=== PATIENT | female | born 1995 | race Caucasian/White ===

== ENCOUNTER → 2022-09-22 | Outpatient (CLI) | payer SELFPAY ==
[2022-09-22 11:19] LABS: Absolute Lymphocyte Count 1.89 X10^3/uL (0.83-4.51); Absolute Neutrophil Count 5.4 X10^3/uL (2.0-7.7); Basophil# 0.01 X10^3/uL; Basophil% 0.1 % (0-1); Eosinophil# 0.04 X10^3/uL; Eosinophils% 0.5 % (0-5); Hematocrit 35.7 % (37-47); Hemoglobin 11.9 g/dL (12.0-15.0); Lymphocyte # 1.89 X10^3/ul (0.83-4.51); Lymphocyte % 24.4 % (19-41); Mean Corp Hgb Conc 33.3 g/dL (32-36); Mean Corpuscular Hgb 30.1 pg (27.0-32.0); Mean Corpuscular Volume 90.4 fL (81-99); Mean Platelet Vol. 10.3 fl (6.2-12.0); Monocyte# 0.38 X10^3/uL; Monocyte% 4.9 % (0-10); NRBC Flagged by Analyzer 0 % (0-5); Neutrophil # 5.38 X10^3/uL (2.7-7.7); Neutrophil % 69.6 % (47-70); Platelet Count 176 K/mm3 (150-450); RBC Distribution Width CV 13.2 % (11.6-14.6); RBC Distribution Width SD 43.6 fl (35.1-43.9); Red Blood Count 3.95 M/mm3 (4.2-5.4); White Blood Count 7.7 K/mm3 (4.4-11.0)
[2022-09-22 12:42] LABS: HIV - WCH Non-Reactive (Nonreactive); Hepatitis B Surface Antigen Non-Reactive (Nonreactive); Hepatitis C Antibody Non-Reactive (Nonreactive); Rubella IgG Reactive (Nonreactive); Syphilis Antibodies Non-reactive
[2022-09-26 04:07] LABS: Chlamydia By Nucleic Acid AMP Negative (Negative); Gonococcus By Nucleic Acid AMP Negative (Negative)
[2022-09-30 11:25] LABS: HPV Reflexed? NOT INDICATED
== END | disposition home or self-care (01) ==
PROVIDERS: PCP Family Medicine; Referring Provider Advanced Practice Midwife; Visit Provider Advanced Practice Midwife
DX: O09.90 Supervision of high risk pregnancy, unspecified, unspecified trimester (principal); Z3A.00 Weeks of gestation of pregnancy not specified
CPT/HCPCS: 36415; 85025; 86703; 86762; 86780; 86803; 86850; 86900; 86901; 87086; 87088; 87340; 87491; 87591; 88175; G0145

== ENCOUNTER → 2022-11-30 | Outpatient (CLI) | payer SELFPAY ==
--- NOTE | 2022-11-30 12:18 | US_ITS ---
STUDY: SECOND AND THIRD TRIMESTER OBSTETRICAL ULTRASOUND REASON FOR EXAM: Female, 27 years old anatomy scan LMP: July 14, 2022. TECHNIQUE: Transabdominal and Transvaginal TECHNICAL QUALITY: Adequate. PRIOR ULTRASOUND: None. FINDINGS: There is a single intrauterine fetus. The fetus is in a variable presentation. There is demonstrated cardiac activity with a heart rate of 141 bpm. There is a normal amniotic fluid volume. The largest amniotic fluid pocket measures 4.2 cm. The amniotic fluid index (ZABRINA) is within normal limits. The placenta is anterior in location and is not low lying. There are Grade 0 placental changes. The cervix measures 4.2 cm in length. The bilateral adnexal regions are normal. BIOMETRY: BPD: 4.39 cm: 19 weeks, 2 days HC: 17.01 cm: 19 weeks, 4 days AC: 14.23 cm: 19 weeks, 4 days FL: 3.06 cm: 19 weeks, 3 days CI: 72% FL/BPD: 70% FL/HC: FL/AC: 22% HC/AC: 1.2 age by current US: 19 weeks, 1 days. WERNER by current US: October 22, 2023. Estimated weight: 297 grams, +/- 45 grams, 27 %. Age by LMP: 19 weeks, 6 days. WERNER by LMP: April 20, 2023. ANATOMY: Gender: Male Cranium: Normal lateral ventricles. Normal choroid plexus. Normal cerebellum. Normal cisterna magna. Normal face, nose and lips. Chest: Normal 4-chamber heart. Abdomen/Pelvis: Normal diaphragm. Normal stomach. Normal abdominal wall. Normal cord insertion. Normal 3 vessel cord. Normal kidneys. Normal bladder. Spine: Normal cervical spine. Normal thoracic spine. Normal lumbar spine. Normal sacrum. Extremities: Normal bilateral upper extremities. Normal bilateral lower extremities. US/OB Anatomy Scan IMPRESSION: Single live intrauterine gestation with a mean gestational age of 19 weeks and 1 day. Electronically Signed: John Suarez MD at 9:29 EDT ,
== END | disposition home or self-care (01) ==
LOC: OPUS 12:16
PROVIDERS: PCP Family Medicine; Referring Provider Advanced Practice Midwife; Visit Provider Advanced Practice Midwife
DX: O34.219 Maternal care for unspecified type scar from previous cesarean delivery (principal); Z3A.00 Weeks of gestation of pregnancy not specified
CPT/HCPCS: 76805; 76817

== ENCOUNTER → 2023-01-22 | Outpatient (CLI) | payer SELFPAY ==
[2023-01-22 09:46] LABS: Absolute Lymphocyte Count 1.51 X10^3/uL (0.83-4.51); Absolute Neutrophil Count 4.9 X10^3/uL (2.0-7.7); Basophil# 0.01 X10^3/uL; Basophil% 0.1 % (0-1); Eosinophil# 0.05 X10^3/uL; Eosinophils% 0.7 % (0-5); Hematocrit 30.2 % (37-47); Hemoglobin 10.5 g/dL (12.0-15.0); Lymphocyte # 1.51 X10^3/ul (0.83-4.51); Lymphocyte % 22.1 % (19-41); Mean Corp Hgb Conc 34.8 g/dL (32-36); Mean Corpuscular Hgb 32.1 pg (27.0-32.0); Mean Corpuscular Volume 92.4 fL (81-99); Mean Platelet Vol. 10.1 fl (6.2-12.0); Monocyte# 0.31 X10^3/uL; Monocyte% 4.5 % (0-10); NRBC Flagged by Analyzer 0 % (0-5); Neutrophil # 4.91 X10^3/uL (2.7-7.7); Neutrophil % 71.9 % (47-70); Platelet Count 136 K/mm3 (150-450); RBC Distribution Width CV 13.2 % (11.6-14.6); RBC Distribution Width SD 45.1 fl (35.1-43.9); Red Blood Count 3.27 M/mm3 (4.2-5.4); White Blood Count 6.8 K/mm3 (4.4-11.0)
[2023-01-22 10:05] LABS: Glucose Challenge Gest 1H 50g 108 mg/dL (70-140)
[2023-01-22 10:38] LABS: HIV - WCH Non-Reactive (Nonreactive); Syphilis Antibodies Non-reactive
== END | disposition home or self-care (01) ==
PROVIDERS: PCP Family Medicine; Referring Provider Obstetrics & Gynecology; Visit Provider Obstetrics & Gynecology
DX: O34.219 Maternal care for unspecified type scar from previous cesarean delivery (principal); Z3A.00 Weeks of gestation of pregnancy not specified
CPT/HCPCS: 36415; 82950; 85025; 86703; 86780

== ENCOUNTER → 2023-02-22 | Outpatient (CLI) | payer SELFPAY ==
[2023-02-22 09:32] LABS: Absolute Lymphocyte Count 1.68 X10^3/uL (0.83-4.51); Basophil# 0.01 X10^3/uL; Basophil% 0.1 % (0-1); Eosinophil# 0.05 X10^3/uL; Eosinophils% 0.7 % (0-5); Hematocrit 32.5 % (37-47); Hemoglobin 10.7 g/dL (12.0-15.0); Lymphocyte # 1.68 X10^3/ul (0.83-4.51); Lymphocyte % 23.2 % (19-41); Mean Corp Hgb Conc 32.9 g/dL (32-36); Mean Corpuscular Hgb 30.8 pg (27.0-32.0); Mean Corpuscular Volume 93.7 fL (81-99); Mean Platelet Vol. 10.2 fl (6.2-12.0); Monocyte# 0.43 X10^3/uL; Monocyte% 5.9 % (0-10); NRBC Flagged by Analyzer 0 % (0-5); Platelet Count 126 K/mm3 (150-450); RBC Distribution Width CV 13.6 % (11.6-14.6); RBC Distribution Width SD 46.2 fl (35.1-43.9); Red Blood Count 3.47 M/mm3 (4.2-5.4); White Blood Count 7.3 K/mm3 (4.4-11.0)
== END | disposition home or self-care (01) ==
PROVIDERS: Nurse Practitioner Women's Health; PCP Family Medicine; Referring Provider Obstetrics & Gynecology; Visit Provider Obstetrics & Gynecology
DX: O99.019 Anemia complicating pregnancy, unspecified trimester (principal); D69.6 Thrombocytopenia, unspecified; O99.119 Other diseases of the blood and blood-forming organs and certain disorders involving the immune mechanism complicating pregnancy, unspecified trimester; Z3A.00 Weeks of gestation of pregnancy not specified
CPT/HCPCS: 36415; 85025

== ENCOUNTER → 2023-03-23 | Outpatient (CLI) | payer SELFPAY ==
[2023-03-23 10:43] LABS: Absolute Lymphocyte Count 1.62 X10^3/uL (0.83-4.51); Absolute Neutrophil Count 4.8 X10^3/uL (2.0-7.7); Basophil# 0.02 X10^3/uL; Basophil% 0.3 % (0-1); Eosinophil# 0.04 X10^3/uL; Eosinophils% 0.6 % (0-5); Hematocrit 32.4 % (37-47); Hemoglobin 10.9 g/dL (12.0-15.0); Lymphocyte # 1.62 X10^3/ul (0.83-4.51); Lymphocyte % 23.1 % (19-41); Mean Corp Hgb Conc 33.6 g/dL (32-36); Mean Corpuscular Hgb 31.3 pg (27.0-32.0); Mean Corpuscular Volume 93.1 fL (81-99); Mean Platelet Vol. 10.6 fl (6.2-12.0); Monocyte# 0.46 X10^3/uL; Monocyte% 6.6 % (0-10); NRBC Flagged by Analyzer 0 % (0-5); Neutrophil # 4.82 X10^3/uL (2.7-7.7); Neutrophil % 68.7 % (47-70); Platelet Count 137 K/mm3 (150-450); RBC Distribution Width CV 13.4 % (11.6-14.6); RBC Distribution Width SD 45.4 fl (35.1-43.9); Red Blood Count 3.48 M/mm3 (4.2-5.4)
[2023-03-23 18:42] LABS: Group B Strep DNA By PCR Negative (Negative)
== END | disposition home or self-care (01) ==
PROVIDERS: Nurse Practitioner Women's Health; PCP Family Medicine; Referring Provider Obstetrics & Gynecology; Visit Provider Obstetrics & Gynecology
DX: O99.012 Anemia complicating pregnancy, second trimester (principal); Z3A.00 Weeks of gestation of pregnancy not specified
CPT/HCPCS: 36415; 85025; 87081; 87653

== ENCOUNTER → 2023-04-05 | Outpatient (CLI) | payer SELFPAY ==
--- NOTE | 2023-04-05 13:27 | US_ITS ---
STUDY: SECOND AND THIRD TRIMESTER OBSTETRICAL ULTRASOUND - LIMITED REASON FOR EXAM: Female, 27 years old small for gestational age -- LMP: 07/14/2022 PRIOR ULTRASOUND: Prior study dated: 11/30/2022 TECHNIQUE: Transabdominal TECHNICAL QUALITY: Adequate. FINDINGS: There is a single intrauterine fetus. The fetus is in a cephalic presentation. There is demonstrated cardiac activity with a heart rate of 135 bpm. There is a normal amniotic fluid volume. The largest amniotic fluid pocket measures 7.4 cm. The amniotic fluid index (ZABRINA) is 17.7 cm. The placenta is anterior in location and is not low lying. There are Grade 1 placental changes. The cervix is not visualized. BIOMETRY: BPD: 8.5 cm: 34 weeks, 2 days HC: 32.7 cm: 37 weeks, 1 days AC: 33.3 cm: 37 weeks, 1 days FL: 7.1 cm: 36 weeks, 3 days Age by LMP: 37 weeks, 6 days. WERNER by LMP: 04/20/2023. age by prior US: 19 weeks, 1 days. WERNER by prior US: 04/23/2023. age by current US: 36 weeks, 2 days. WERNER by current US: 05/01/2023. Estimated weight: 2974 grams, +/- 446 grams, 29 percentile. US/OB Limited With Biometrics IMPRESSION: Single live intrauterine fetus in cephalic presentation with an estimated gestational age 36 weeks and 2 days. WERNER is 05/01/2023. Electronically Signed: Denis Carlton MD at 10:22 EST ,
== END | disposition home or self-care (01) ==
PROVIDERS: PCP Family Medicine; Referring Provider Obstetrics & Gynecology; Visit Provider Obstetrics & Gynecology
DX: D69.6 Thrombocytopenia, unspecified (principal); O99.119 Other diseases of the blood and blood-forming organs and certain disorders involving the immune mechanism complicating pregnancy, unspecified trimester; O34.219 Maternal care for unspecified type scar from previous cesarean delivery; Z3A.00 Weeks of gestation of pregnancy not specified
CPT/HCPCS: 76816

== ENCOUNTER 2023-04-20 09:52 | Inpatient (IN) | payer SELFPAY ==
[2023-04-20] VITALS (18 sets, daily range): BP systolic 92–119; BP diastolic 45–75; PULSE 55–81; RESP 16; TEMP 36.1–36.6; O2SAT 94–98; BMI 29.6
--- NOTE | 2023-04-20 08:13 | HP.PCM.OB_ITS ---
HPI - General HPI Narrative ERMA HUTCHINS, is a 27 F who presents for RLTCS previous csection x 2 Maternal Data Information WERNER Calculator Estimated Delivery Date Method Current WG Current Estimate 04/20/23 Ultrasound #1 40w 0d Other Estimates 04/26/23 LMP (Certain) 39w 1d PFSH PFSH Home Medications dietary supplement cap PO 11/30/22 [History Last Taken Unknown] vitamin#30 30 mg iron-10 mg iron-folic acid 1 mg-omg3 capsule cap PO 11/30/22 [History Last Taken Unknown] Allergy/AdvReac Type Severity Reaction Status Date / Time No Known Allergies Allergy Verified 04/19/23 11:23 Family History Grandmother Cancer, Onset Age: 79 Brain Aunt Cancer, Onset Age: 4 Brain tumor Social History adopted: No household members: family number of children: 2 current occupational status: employed current occupation: [employer] pets and animals: No history of recent travel: No sexually active: Yes Smoking Status: Never smoker alcohol intake: never substance use type: does not use caffeine: Yes Type: coffee seatbelt use: always do you feel safe at home: Yes additional social history: Clifford-garcia History 3 Elective abortions Hx Para 2 Spontaneous abortions Hx # Term Pregnancies 2 Ectopic pregnancies Hx # Pregnancies Multiple births # of living children 2 Past Pregnancies Del. Date Name GA/Weeks Outcome Route Bth Weight Infant Gen Labor Lgth Anesthesia Del Locatn Provider FOB 01/31/17 Kaci 40 live - full term 6.11 Female Pomerene 01/28/19 Kat 41 live - full term 6.15 Female Beason Delivery Date: 01/28/19 Last Updated by: Yaima Oden MD transverse presentation Visit Details Expected Delivery Route/Plan TOLAC by 41 weeks, repeat c section if no spontaneous labor patient counseled regarding risks/benefits of trial of labor versus repeat . ACOG/uptodate education given to patient. 53 % likelihood of success per calculator TOLAC consent form signed: yes Labor Preferences- CB/BF classes: no labor support person: Clifford labor intervention preferences: [] pain management options preferred: epidural cut cord/dad catch: no : yes PP control planned: condoms discussed possible routes of delivery and associated risks: [] special requests: [] Desires co care with community relations assistant Wang Ho Plans Covid status:declined Flu vaccine: declined Tdap vaccine: declined Rhogam: NA LARC form signed: yes movement and labor precautions reviewed. Problem list reviewed and updated with the most current plan of care details and appropriate orders placed. Relevant counseling for the gestational age provided. Continue routine care and follow up unless otherwise noted in visit notes/problem list details OB Flowsheet Initial Weight: Not Recorded Date -?-?-?-?-?-?-?-?-?-?-?-?- EGA Weight BP Urine Prot -?-?-?-?-?-?-?-?-?-?-?-?- Glucose FHR FuHt Pres Dilation -?-?-?-?-?-?-?-?-?-?-?-?- Effaced St Visit Note 09/22/22 -?-?-?-?-?-?-?-?-?-?-?-?- 10w 0d 137 lb 120/74 -?-?-?-?-?-?-?-?-?-?-?-?- 180 -?-?-?-?-?-?-?-?-?-?-?-?- KW- CRL=LMP CL c ysts noted. small SC Hemorrhage noted KW- CRL=LMP CL cysts noted. small SC Hemorrhage noted. plans to do 20 week US and 28 week appointment. plans at [facility] KW- CRL not =LMP. WERNER change d. JV scanned. CL cysts noted. small SC Hemorrhage noted. plans co care with Wang Ho- to do 20 week US and 28 week appointment. plans at [facility] 11/30/22 -?-?-?-?-?-?-?-?-?-?-?-?- 19w 6d 143 lb 103/66 Negative -?-?-?-?-?-?-?-?-?-?-?-?- Negative 140 -?-?-?-?-?-?-?-?-?-?-?-?- SM- no vb ni[place]. discussed will obtain records from delivery [place] 01/22/23 -?-?-?-?-?-?-?-?-?-?-?-?- 27w 3d 149 lb 6 oz 98/60 Nega tive -?-?-?-?-?-?-?-?-?-?--?-?- Negative 154 26 -?-?-?-?-?-?-?-?-?-?-?-?- MH-No VB, LOF. G ood FM. Anemia:reviewed PNV and extra FE daily. Noted low platelets, rpt CBC 4 wk. Declines flu and tdap vaccines. See [employer] player 2 wk then SM/JV 4 wk. Glucose normal. 02/22/23 -?-?-?-?-?-?-?-?-?-?-?-?- 31w 6d 153 lb 108/73 Negative -?-?-?-?-?-?-?-?-?-?-?-?- Negative 140 31 -?-?-?-?-?-?-?-?-?-?-?-?- SM- no vb lof go od fms no regular ctx, she has been seeing wang ho, measurements have been WN, 03/23/23 -?-?-?-?-?-?-?-?-?-?-?-?- 36w 0d 160 lb 114/75 Negative -?-?-?-?-?-?-?-?-?-?-?-?- Negative 150 35 Cephalic 1 -?-?-?-?-?-?-?-?-?-?-?-?- 30 -3 JV- no lof , vaginal bleeding, or dec fm. gbs collected. wants rpt section if no labor by 40 weeks. does not want her community relations assistant to be her family coach any longer .states that she does not feel comfortable with her. plts up to 137 04/05/23 -?-?-?-?-?-?-?-?-?-?-?-?- 37w 6d 159 lb 103/66 -?-?-?-?-?-?-?-?-?-?-?-?- 130 37 Cephalic 1 -?-?-?-?-?-?-?-?-?-?-?-?- SM_ no vb lof go od fm n oregular ctx, wans to wait closer til 41 for RLTCS/TOLAC. 04/19/23 -?-?-?-?-?-?-?-?-?-?-?-?- 39w 6d 161 lb 9.6 oz 104/68 Ne gative -?-?-?-?-?-?-?-?-?-?-?-?- Negative 130 34 Cephalic 1 -?-?-?-?-?-?-?-?-?-?-?-?- 60 -2 SM- no vb lof good fm dropped FH suraj 7 cm down from 17 cm. NST FHR Rate Baby A Baseline: 130 ROS Constitutional Constitutional: Reports systems reviewed and no addt'l complaints, except as documented Eyes Eyes: Denies change in vision ENT HEENT: Reports systems reviewed and no addt'l complaints, except as documented; Denies headache(s) Cardiovascular Cardiovascular: Reports systems reviewed and no addt'l complaints, except as documented; Denies chest pain or dyspnea Respiratory/Chest Respiratory/Chest: Reports systems reviewed and no addt'l complaints, except as documented Gastrointestinal Gastrointestinal: Reports systems reviewed and no addt'l complaints, except as documented; Denies abdominal pain Genitourinary Genitourinary: Reports systems reviewed and no addt'l complaints, except as documented, contractions Details: present (irregular) and movement Details: present; Denies dysuria or genital lesions Musculoskeletal Musculoskeletal: Reports systems reviewed and no addt'l complaints, except as documented Neurologic Neurologic: Reports systems reviewed and no addt'l complaints, except as documented Endocrine Endocrinology: Reports systems reviewed and no addt'l complaints, except as documented Physical Exam Const alert, oriented x3, no apparent distress and healthy appearing HEENT normocephalic and moist oral mucous membranes Head and Scalp: atraumatic Neck full ROM, no lymphadenopathy, supple and thyroid normal General: trachea midline Lymph Lymphatic: no lymphadenopathy noted Chest inspection of chest normal Resp normal respiratory effort Cardio regular rate GI normal to inspection, nondistended, normoactive bowel sounds, soft to palpation and non-tender Inspection: gravid external exam normal Manual OB Exam: estimated gestational size appropriate, presentation cephalic, dilated, effaced and station Extremity normal to inspection General Extremity: Negative for edema Skin no rashes or lesions noted Neuro no focal motor deficits and deep tendon reflexes 2+ bilaterally Motor Exam: strength 5/5 throughout and clonus absent Psych mental status grossly normal Labs Labs Labs: Blood Type O POSITIVE Antibody Screen NEGATIVE Hct 32.4 % (37-47) L Hgb 10.9 g/dL (12.0-15.0) L Obstetrics Ultrasound Syphilis Total Ab Non-reactive Rubella IgG Antibody Reactive (Nonreactive) Hep Bs Antigen Non-Reactive (Nonreactive) Hepatitis C Antibody Non-Reactive (Nonreactive) Chlamydia DNA (ARCELIA) Negative (Negative) N.gonorrhoeae DNA (ARCELIA) Negative (Negative) HIV 1&2 Antibody Non-Reactive (Nonreactive) Glucose 1 Hr 50 gm 108 mg/dL (70-140) Group B Strep DNA Negative (Negative) Assessment & Plan (1) History of delivery affecting : COMMENT: failed induction & transverse lie IAL on second (2) Supervision of high risk , antepartum: COMMENT: PRR WERNER 04/20/23 Kat Grewal Clifford (3) : QUALIFIERS: Weeks of gestation: 39 weeks Qualified Code(s): Z3A.39 - 39 weeks gestation of COMMENT: GBS Negative, Declines NIPT/carrier/afp screen. normal anatomy (4) Thrombocytopenia affecting : COMMENT: 01/22:136. 11/3 126. Recheck 4 wk (5) Anemia in preg-unspec: QUALIFIERS: Trimester: second trimester Qualified Code(s): O99.012 - Anemia complicating , second trimester COMMENT: start FE; stable PLAN: Plan proceed with RLTCS
[2023-04-20] MEDS: Lactated Ringers 1,000 ML 999 ML IV (10:25)
[2023-04-20] MEDS: Acetaminophen 500 MG Tablet 1000 MG PO ×3 (10:31→22:15)
--- OUTSIDE RECORDS SUMMARY | 2023-04-20 10:31 | XMS RPT_ITS | CCD ---
Author Name Unknown Address [address] [place] [address] [facility] Care Team Providers Care Long Term Care Social Worker Name Role Phone Brandee Radford Unavailable Unavailable Lopez, Clarence Unavailable Unavailable PrabhakarBrandee villa D Unavailable Unavailable Lai Babcock Unavailable Unavailable Atul, Shemar Unavailable Unavailable Yevgeniy, Mehnaz Unavailable Unavailable Yevgeniy, Mehnaz Unavailable Unavailable Atul, Shemar Unavailable Unavailable Yevgeniy, Mehnaz Unavailable Unavailable Atul, Shemar Unavailable Unavailable Yevgeniy, Mehnaz Unavailable Unavailable Atul, Shemar Unavailable Unavailable Yevgeniy, Mehnaz Unavailable Unavailable Yevgeniy, Mehnaz Unavailable Unavailable Atul, Shemar Unavailable Unavailable Yevgeniy, Mehnaz Unavailable Unavailable Atul, Shemar Unavailable Unavailable Yevgeniy, Mehnaz Unavailable Unavailable Yevgeniy, Mehnaz Unavailable Unavailable Atul, Shemar Unavailable Unavailable Yevgeniy, Mehnaz Unavailable Unavailable Atul, Shemar Unavailable Unavailable Yevgeniy, Mehnaz Unavailable Unavailable Atul, Shemar Unavailable Unavailable Yevgeniy, Mehnaz Unavailable Unavailable Yevgeniy, Mehnaz Unavailable Unavailable Yevgeniy, Mehnaz Unavailable Unavailable Atul, Shemar Unavailable Unavailable Yevgeniy, Mehnaz Unavailable Unavailable Yevgeniy, Mehnaz Unavailable Unavailable Atul, Shemar Unavailable Unavailable Yevgeniy, Mehnaz Unavailable Unavailable Atul, Shemar Unavailable Unavailable Yevgeniy, Mehnaz Unavailable Unavailable Tavo Zhou Unavailable Unavailable Unavailable [place], Mrs. Tavo Nicole Referring Unavailabl e Abelardo, Mrs. Tavo Nicole Attending Unavailabl e Abelardo, Alex Nicole Primary Care Unavailabl e Allergies Allergy Classification Reported Allergen(s) Allergy Type Date of Onset Reaction(s) Facility (1 source) No Known Medication Allergies; Translations: [No Known Medication Allergies] Propensity to adverse reactions to drug (disorder) [facility] Repository Medications Completed/Discontinued Medications Medication Drug Class(es) Dates Sig (Normalized) Sig (Original) hydrocortisone acetate 25 mg rectal suppository (2 sources) Corticosteroid Start: 05-04-2022 Hydrocortisone (Perianal) 2.5 % External Cream APPLY ONCE DAILY NEEDED. Quantity: 1 Refills: 2 Ordered: 04-May-2022 Abelardo DUKESTavo Start : 04-May-2022 Active Problems Problem Classification Problem Date Documented Da te Episodic/Chronic Hemorrhoids (2 sources) Internal hemorrhoids; Translations: [Internal hemorrhoids without mention of complication] Episodic Other gastrointestinal disorders (1 source) Constipation; Translations: [Constipation, unspecified] Episodic Results Test Name Value Interpretation Reference Range Facil ity Vital Signs Date Time Vital Sign Value Performing Clinician Faci lity 05-04-2022 09:35-0500 Body height 160.02 cm Tavo Callejasd Work Phone: [facility] Work Phone: 05-04-2022 09:35-0500 Body mass index (BMI) [Ratio] 25.51 kg/m2 Tavo Callejasd Work Phone: [facility] Work Phone: 05-04-2022 09:35-0500 Body surface area Derived from formula 1.68 m2 Tavo Callejasd Work Phone: [facility] Work Phone: 05-04-2022 09:35-0500 Body weight 65.32 kg Tavo Callejasd Work Phone: [facility] Work Phone: 05-04-2022 09:35-0500 Diastolic blood pressure 64 mm[Hg] Tavo Callejasd Work Phone: [facility] Work Phone: 05-04-2022 09:35-0500 Heart rate 62 /min Tavo Callejasd Work Phone: [facility] Work Phone: 05-04-2022 09:35-0500 Systolic blood pressure 112 mm[Hg] Tavo Job Zhou Work Phone: [facility] Work Phone: Encounters Encounter Date Encounter Type Care Provider Facility Start: 05-04-2022 Office outpatient ne w 30 minutes Tavo Zhou Work Phone: [facility] Work Phone: Start: 05-04-[address] Mrs[address] Tavo Nicole Abelardo Fa cility:[id number] Start: 03-27-2017 End: 03-28-2017 Ambulatory Brandee Radford Facility:[facility] Start: 03-19-2017 End: 03-20-2017 Ambulatory Mehnaz Yevgeniy Facility:[facility] Start: 02-16-2017 End: 02-17-2017 Ambulatory Mehnaz Yevgeniy Facility:[facility] Start: 01-30-2017 End: 02-02-2017 Evaluation and management of inpatient Shemar Atul Facility:[facility] Start: 01-29-2017 End: 01-30-2017 Ambulatory [facility] Facility:[facility] Start: 01-22-2017 End: 01-23-2017 Ambulatory Mehnaz Yevgeniy Facility:[facility] Start: 01-15-2017 End: 01-16-2017 Ambulatory Mehnaz Yevgeniy Facility:[facility] Start: 01-05-2017 End: 01-06-2017 Ambulatory Mehnaz Yevgeniy Facility:[facility] Start: 12-26-2016 End: 12-27-2016 Ambulatory [facility] Facility:[facility] Start: 12-26-2016 End: 12-27-2016 Ambulatory Mehnaz Yevgeniy Facility:[facility] Start: 12-05-2016 End: 12-06-2016 Ambulatory Mehnaz Yevgeniy Facility:[facility] Start: 11-07-2016 End: 11-08-2016 Ambulatory Lai Babcock Facility:[facility] Start: 11-07-2016 End: 11-08-2016 Ambulatory Mehnaz Yevgeniy Facility:[facility] Procedures Date Procedure Procedure Detail Performing Clinician section Tavo nagel Work Phone: Plan of Treatment Date Care Activity Detail Author Start: 06-06-2022 EPV, Provider: Tavo Zhou, Status: Pen, Time: 9:15 AM EPV, Provider: AbelardoTavo, Status: Pen, Time: 9:15 AM [facility] Work Phone: Payers Date Payer Category Payer Unknown 1995 Unknown [id number] Self-pay Social History Date Type Detail Facility No illicit drug use No illicit drug use [facility] Work Phone: History of Present illness Narrative Note Date & Type Note Facility History of Present illness Narrative Rafia is a 26 yo female, here today to establish care, she has complaint of hemorrhoids.She reports she has had problem with hemorrhoids for years.She first had issues with hemorrhoids as a teenShe states that recently she has one that has been bothering her for 6 months.She reports rectal bleeding once.does have rectal pain, burning, and itching dailypain worse with lifting.taking daily fiber supplementLMC: 04/26/2021 [facility] Work Phone: Summary Purpose Family History No Family History Records FoundUnknown Family Member Name Dates Details No pertinent family history: Mother, Father(V49.89, Z78.9) Status:Active Advance Directives No Advanced Directives Records FoundNo Advanced Directives Records FoundNo Advanced Directives Records FoundNo Advanced Directives Records FoundNo Advanced Directives Records Found 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 Additional Source Comments INFORMATION SOURCE (unrecogn ized section and content) DATE CREATED AUTHOR AUTHOR'S ORGANIZ ATION 02/05/2019 [facility] ([place]) DATE CREATED AUTHOR AUTHOR'S ORGANIZ ATION 05/04/2022 [facility] DATE CREATED AUTHOR AUTHOR'S ORGANIZ ATION 05/04/2022 [employer] FOR RECORDS PERTAINING TO PATIENTS WHO ARE OR HAVE BEEN ENROLLED IN A CHEMICAL DEPENDENCY/SUBSTANCEABUSE PROGRAM, SOME INFORMATION MAY BE OMITTED. This clinical summary was aggregated from multiple sources. Caution should be exercised in using it in the provision of clinical care. This summary normalizes information from multiple sources, and as a consequence, information in this document may materially change the coding, format and clinical context of patient data. In addition, data may be omitted in some cases. CLINICAL DECISIONS SHOULD BE BASED ON THE PRIMARY CLINICAL RECORDS. [facility] [employer] [facility]. provides no warranty or guarantee of the accuracy or completeness of information in this document.
[2023-04-20 10:49] LABS: Absolute Lymphocyte Count 1.57 X10^3/uL (0.83-4.51); Absolute Neutrophil Count 5.2 X10^3/uL (2.0-7.7); Basophil# 0.01 X10^3/uL; Basophil% 0.1 % (0-1); Eosinophil# 0.03 X10^3/uL; Eosinophils% 0.4 % (0-5); Hematocrit 31.7 % (37-47); Hemoglobin 10.9 g/dL (12.0-15.0); Lymphocyte # 1.57 X10^3/ul (0.83-4.51); Lymphocyte % 21.7 % (19-41); Mean Corp Hgb Conc 34.4 g/dL (32-36); Mean Corpuscular Hgb 31.8 pg (27.0-32.0); Mean Corpuscular Volume 92.4 fL (81-99); Mean Platelet Vol. 11.2 fl (6.2-12.0); Monocyte% 5.5 % (0-10); NRBC Flagged by Analyzer 0 % (0-5); Neutrophil # 5.17 X10^3/uL (2.7-7.7); Neutrophil % 71.6 % (47-70); Platelet Count 140 K/mm3 (150-450); RBC Distribution Width CV 13.2 % (11.6-14.6); RBC Distribution Width SD 43.9 fl (35.1-43.9); Red Blood Count 3.43 M/mm3 (4.2-5.4); White Blood Count 7.2 K/mm3 (4.4-11.0)
[2023-04-20] MEDS: Lactated Ringers 1,000 ML 150 ML IV (11:29)
[2023-04-20 11:54] LABS: Syphilis Antibodies Non-reactive
[2023-04-20] MEDS: Sodium Citrate/Citric Acid 30 ML UDC PO (12:22)
[2023-04-20] MEDS: Cefazolin 2 GM in 0.9% Normal Saline (100mL Bag) 100 ML IV (12:34)
--- NOTE | 2023-04-20 13:38 | EX.PCM.OBRPT ---
Assessment & Plan (1) Uterine size-date discrepancy, third trimester: COMMENT: FH drop 4 cm, ZABRINA dec 17 to 7 cm, will proceed with deliveyr tomorrow, zabrina and nst today (2) Anemia in preg-unspec: QUALIFIERS: Trimester: second trimester Qualified Code(s): O99.012 - Anemia complicating , second trimester COMMENT: start FE; stable (3) Thrombocytopenia affecting : COMMENT: 01/22:136. 02/23 126. Recheck 4 wk (4) Desires (vaginal after ) trial: COMMENT: Op note reviewed from HAROLDO jorgensen. 4 cm on first csection, 7 cm and transverse lie with second csection, RCS 04/25/23 (5) : QUALIFIERS: Weeks of gestation: 39 weeks Qualified Code(s): Z3A.39 - 39 weeks gestation of COMMENT: GBS Negative, Declines NIPT/carrier/afp screen. normal anatomy (6) Supervision of high risk , antepartum: COMMENT: PRR WERNER 04/20/23 Kat Grewal Clifford (7) History of delivery affecting : COMMENT: failed induction & transverse lie IAL on second (8) delivery delivered: COMMENT: RLTCS leonard [facility]brook 40- Maternal Data Information WERNER Calculator Estimated Delivery Date Method Current WG Current Estimate 04/20/23 Ultrasound #1 40w 0d Other Estimates 04/26/23 LMP (Certain) 39w 1d Final WERNER Source: LMP Details Operative Information Date of Procedure: 04/20/23 Pre-Operative Diagnosis: Previous Post-Operative Diagnosis: same Indications for : Repeat Elective Indications Narrative: Surgeon: Yaima Oden MD Classification: Scheduled Procedure Type: low transverse ammonium hydroxide operator #1: Alex Mahajan Type of Anesthesia: Spinal Special Medications: none Antibiotic Given: Ancef 2 grams IV x1 Drain: Cannon to straight drain Estimated Blood Loss: 400 Fluids Replaced: crystalloid Procedure Start Time: 12:57 Procedure Stop Time: 13:32 Findings Description of Procedure: Spinal anesthesia was placed without difficulty. Cannon catheter was placed. The patient was placed in the dorsal supine position with leftward tilt. Patient was prepped and draped in the normal sterile fashion. Pfannenstiel skin incision was made with the scalpel and carried through to the underlying layer of fascia with the scalpel. Fascia was nicked in the midline and the incision extended laterally. The rectus bellies were dissected off superiorly and inferiorly with out complication both sharply and bluntly. The peritoneum was entered digitally. The incision was stretched and a low transverse uterine incision was made with the scalpel. The infant's head was delivered atraumatically followed by the anterior and posterior shoulders without complication the rest of the delivered. The cord was clamped and cut and the infant was handed off to awaiting nurse. The placenta was delivered spontaneously immediately following and was noted to be intact and have a three-vessel cord. The uterus was exteriorized cleared of all clots and debris, and the incision was closed in a single layer closure using #1 Monocryl. pelvic congestion noted. The ovaries and fallopian tubes were noted to be within normal limits. The uterus was returned to the maternal abdomen and gutters were cleared of all clots and debris. The peritoneum was closed with 3-0 Monocryl in a running fashion. Fascia was closed with 0 PDS in a running fashion. Subcutaneous tissue was copiously irrigated and the skin was closed with 3-0 Monocryl in a subcuticular fashion. Mepilex dressing was applied without complication. Patient was taken to recovery in stable condition. It was discussed with the patient that based on the clinical information obtained during this encounter, combined with her history, at this time I would recommend cesareans for future deliveries if further pregnancies are desired. Amniotic Membrane Rupture Type: Artificial Amniotic Fluid Description: Clear Placenta Disposition: [facility] Cord Vessel Description: 3 Vessels Delayed Cord Clamping: Yes Complications Risks of Surgery Discussed w/Patient: Bleeding, Infection, Need for Future C-Sections and Injury to surrounding structure(s) including bowel and bladder Vaginal Delivery Complication Complications: None Admit VTE Documentation VTE Present on Admission: No VTE Mechan Device Prophylaxis: SCD's Procedures Urinary/Genital [id number]: [id number] Delivery [facility]
--- NOTE | 2023-04-20 13:46 | DCINST_ITS ---
Discharge Instructions Diet Discharge Diet: No restrictions Activity Discharge Activity: May Not Drive (for 2 weeks or while taking narcotic pain medications.), May Shower and May Take a Tub Bath (in 7 days) May shower in (days): 0 May resume sexual activity in: 4-6 weeks Weight Bearing Status: Full weight bearing Lifting Restrictions: 20 pounds Dressing / Incision Call your doctor if your incision/area has: Continuous Slow Oozing, Sudden Increased Bleeding, Increased Pain/ Swelling, Increased Redness and Foul Smelling Discharge Call your doctor if you observe: Fever of 101 or Higher and Using more than 1 pad per hour (for 2 hours) Suture Line Care: Avoid Pulling/Pushing and Avoid Pinching/Bending Cleanse incision/area with: Soap & Water and Keep Dressing Clean & Dry Follow Up Care Please Follow Up With: Yaima Oden MD When: Call [phone] to make an appointment for an incision check in 1-2 weeks. Test Results: Test results from this visit will be discussed in further detail at your follow- up appointment, if applicable. Discharge Plan Admission Admit Date/Time: 04/20/23 09:52 Attending Provider: Yaima Oden Primary Care Provider: Shemar Pollard Discharge Orders/Prescriptions Prescriptions: New oxycodone-acetaminophen [Percocet] 5-325 mg tablet 1 tab PO Q6H PRN (Reason: pain) 7 Days Qty: 10 0RF naproxen [naproxen] 500 mg tablet 500 mg PO BID PRN PRN (Reason: Pain) Qty: 30 1RF No Action PNV #[id number] 30 mg iron-10 mg iron-1 mg capsule 1 cap PO aspirin [Enteric Coated Aspirin] 81 mg tablet,delayed release (DR/EC) 81 mg PO DAILY Referrals / Follow Up: Shemar Pollard MD [Primary Care Provider] - Disposition Disposition (needs filled in before D/C Order can be placed): Home, Self Care
[2023-04-20] MEDS: Oxytocin 15 Units/NS 250ml 15 UNITS/250 ML IV.SOLN 83 UNITS IV (14:24)
[2023-04-20] MEDS: 0.9% Saline Lock 10 ML Syringe IV ×3 (14:35→19:56)
[2023-04-20] MEDS: Ketorolac 30 MG/ML Syringe IV ×2 (14:35→19:56)
--- NOTE | 2023-04-20 15:12 | NURSING ---
small piece of amniotic membrane expressed with fundal check. Fundus firm and 1-2 below
[2023-04-20] MEDS: Methylergonovine 0.2 MG/ML Ampul 0.200000000000000011 MG IM (16:15)
[2023-04-20] MEDS: TRANEXAMIC ACID 1,000 MG in 0.9% Normal Saline (100mL Bag) 100 ML 440 MG IV (16:32)
--- NOTE | 2023-04-20 18:15 | NURSING ---
Patient unable to lift feet off bed but leg mobility improving. Will continue to assess for ability to ambulate.
[2023-04-21] MEDS: Ketorolac 30 MG/ML Syringe IV ×2 (02:32→08:14)
[2023-04-21] MEDS: 0.9% Saline Lock 10 ML Syringe IV ×2 (02:33→08:15)
[2023-04-21] MEDS: Acetaminophen 500 MG Tablet 1000 MG PO ×2 (04:44→10:47)
[2023-04-21 04:48] VITALS: BP 90/43; PULSE 60; RESP 16; TEMP 36.6; O2SAT 99
[2023-04-21 05:08] LABS: Hematocrit 27.7 % (37-47); Hemoglobin 9.5 g/dL (12.0-15.0); Mean Corp Hgb Conc 34.3 g/dL (32-36); Mean Corpuscular Hgb 32.1 pg (27.0-32.0); Mean Corpuscular Volume 93.6 fL (81-99); Mean Platelet Vol. 10.8 fl (6.2-12.0); Platelet Count 137 K/mm3 (150-450); RBC Distribution Width CV 13.3 % (11.6-14.6); RBC Distribution Width SD 45.3 fl (35.1-43.9); Red Blood Count 2.96 M/mm3 (4.2-5.4); White Blood Count 11.4 K/mm3 (4.4-11.0)
--- NOTE | 2023-04-21 07:04 | PN.OBGYN_ITS ---
Subjective Subjective Patient doing well without complaints. Tolerating PO. Ambulating and voiding without difficulty. feeding well. Denies chest pain, shortness of breath, calf pain/swelling, fevers, chills, lightheadedness. Objective Data Objective Data Vital Signs: Vital Signs Temp Pulse Resp BP Pulse Ox O2 Del Method 97.9 F 60 16 90/43 L 99 Room Air 04/21/23 04:48 04/21/23 04:48 04/21/23 04:48 04/21/23 04:48 04/21/23 04:48 04/21/23 04:48 Oxygen Delivery Method Room Air Weight: 162 lb Body Mass Index (BMI) 29.6 Intake & Output: Intake and Output for Last 24 Hours 04/19/23 04/20/23 04/21/23 23:59 23:59 23:59 Intake Total 1632.50 / 1632.50 2000 / 2000 Output Total 1407 / 1407 900 / 900 Balance 225.50 / 225.50 1100 / 1100 Lab / Micro Data 04/21/23 04:30 Labs: Laboratory Results - last 24 hr 04/20/23 10:25: WBC 7.2, RBC 3.43 L, Hgb 10.9 L, Hct 31.7 L, MCV 92.4, MCH 31.8, MCHC 34.4, RDW Std Deviation 43.9, RDW Coeff of Scarlet 13.2, Plt Count 140 L, MPV 11.2, Immature Gran % (Auto) 0.700, Neut % (Auto) 71.6 H, Lymph % (Auto) 21.7, [place] % (Auto) 5.5, Eos % (Auto) 0.4, Baso % (Auto) 0.1, Absolute Neuts (auto) 5.2, Absolute Lymphs (auto) 1.57, Nucleated RBC % 0, Syphilis Total Ab Non- reactive, Blood Type O POSITIVE, Antibody Screen NEGATIVE 04/21/23 04:30: WBC 11.4 H, RBC 2.96 L, Hgb 9.5 L, Hct 27.7 L, MCV 93.6, MCH 32.1 H, MCHC 34.3, RDW Std Deviation 45.3 H, RDW Coeff of Scarlet 13.3, Plt Count 137 L, MPV 10.8 ROS Constitutional Constitutional: Reports systems reviewed and no addt'l complaints, except as documented Cardiovascular Cardiovascular: Reports systems reviewed and no addt'l complaints, except as documented Respiratory/Chest Respiratory/Chest: Reports systems reviewed and no addt'l complaints, except as documented Gastrointestinal Gastrointestinal: Reports systems reviewed and no addt'l complaints, except as documented Physical Exam Const alert, oriented x3 and no apparent distress HEENT Head and Scalp: atraumatic Resp normal respiratory effort GI soft to palpation and non-tender Inspection: incision intact, healing well and drainage (none) Bimanual Exam - Vag & Uterus: uterus non-tender Uterus Palpation: uterus fundus firm (below Umbilicus) Assessment & Plan (1) delivery delivered: COMMENT: LUIS E hol[place] 40- PLAN: Plan s/p LTCS PPD # 1 1. routine post care 2. breast feeding- support given 3. rh positive 4. rubella immune
[2023-04-21 08:10] VITALS: BP 101/53; PULSE 54; RESP 16; TEMP 36.2; O2SAT 100
[2023-04-21] MEDS: Senna/Docusate Sodium 1 Tablet PO (10:47)
[2023-04-21 14:00] VITALS: BP 105/53; PULSE 63; RESP 16; TEMP 36.4; O2SAT 98
[2023-04-21] MEDS: Naproxen 500 MG Tablet PO (14:24)
== END 2023-04-21 15:40 | disposition home or self-care (01) | DRG 788 ==
PROVIDERS: Admitting Provider Obstetrics & Gynecology; PCP Family Medicine; Referring Provider Obstetrics & Gynecology; Visit Provider Obstetrics & Gynecology
PROC: 10D00Z1 Extraction of Products of Conception, Low, Open Approach (ICD-10-PCS; CPT 59514; principal; 2023-04-20 11:45)
DX: O34.211 Maternal care for low transverse scar from previous cesarean delivery (principal); D64.9 Anemia, unspecified; O26.843 Uterine size-date discrepancy, third trimester; Z37.0 Single live birth; O99.02 Anemia complicating childbirth; Z3A.39 39 weeks gestation of pregnancy; Z79.899 Other long term (current) drug therapy
CPT/HCPCS: 59025; 59050; 85025; 85027; 86780; 86850; 86900; 86901; 99221; J7120; A4216; G0378; J2405

== ENCOUNTER → 2023-06-06 | Outpatient (CLI) | payer SELFPAY ==
[2023-06-06 11:34] LABS: Absolute Lymphocyte Count 2.49 X10^3/uL (0.83-4.51); Absolute Neutrophil Count 2.7 X10^3/uL (2.0-7.7); Basophil# 0.01 X10^3/uL; Basophil% 0.2 % (0-1); Eosinophil# 0.08 X10^3/uL; Eosinophils% 1.4 % (0-5); Hematocrit 36.5 % (37-47); Hemoglobin 12.2 g/dL (12.0-15.0); Lymphocyte # 2.49 X10^3/ul (0.83-4.51); Lymphocyte % 44.1 % (19-41); Mean Corp Hgb Conc 33.4 g/dL (32-36); Mean Corpuscular Hgb 29.8 pg (27.0-32.0); Mean Corpuscular Volume 89.2 fL (81-99); Mean Platelet Vol. 10.1 fl (6.2-12.0); Monocyte# 0.38 X10^3/uL; Monocyte% 6.7 % (0-10); NRBC Flagged by Analyzer 0 % (0-5); Neutrophil # 2.68 X10^3/uL (2.7-7.7); Neutrophil % 47.4 % (47-70); Platelet Count 169 K/mm3 (150-450); RBC Distribution Width SD 38.9 fl (35.1-43.9); Red Blood Count 4.09 M/mm3 (4.2-5.4); White Blood Count 5.7 K/mm3 (4.4-11.0)
--- OUTSIDE RECORDS SUMMARY | 2023-06-06 11:53 | XMS RPT_ITS | CCD ---
Author Name Unknown Address [address] [place] [address] [facility] [place] Care Team Providers Care Molded Grid And [employer] Inspector Name Role Phone Brandee Radford Unavailable Unavailable [...] Unavailable Unavailable Tavo Zhou Unavailable Unavailable Unavailable Doyle, Mrs. Tavo Nicole Referring Unavailabl e Abelardo, Mrs. Tavo Nicole Attending Unavailabl e Abelardo, Alex Nicole Primary Care Unavailabl e Allergies Allergy Classification Reported Allergen(s) Allergy Type Date of Onset Reaction(s) Facility (1 source) No Known Medication Allergies; Translations: [No Known Medication Allergies] Propensity to adverse reactions to drug (disorder) [facility] Repository Medications Completed/Discontinued Medications Medication Drug Class(es) [...] height 160.02 cm Tavo Callejasd Work Phone: [facility] Work Phone: 05-04-2022 09:35-0500 Body mass index (BMI) [Ratio] 25.51 kg/m2 Tavo Callejasd Work Phone: [facility] Work Phone: 05-04-2022 09:35-0500 Body surface area Derived from formula 1.68 m2 Tavo Callejasd Work Phone: [facility] Work Phone: 05-04-2022 09:35-0500 Body weight 65.32 kg Tavo Callejasd Work Phone: [facility] Work Phone: 05-04-2022 09:35-0500 Diastolic blood pressure 64 mm[Hg] Tavo Callejasd Work Phone: [facility] Work Phone: 05-04-2022 09:35-0500 Heart rate 62 /min Tavo Callejasd Work Phone: [facility] Work Phone: 05-04-2022 09:35-0500 Systolic blood pressure 112 mm[Hg] Tavo Job Zhou Work Phone: [facility] Work Phone: Encounters Encounter Date Encounter Type Care Provider Facility Start: 05-04-2022 Office outpatient ne w 30 minutes Tavo Zhou Work Phone: [facility] Work Phone: Start: 05-04-[address] Mrs[address] Tavo Nicole Abelardo Fa cility:[id number] Start: 03-27-2017 End: 03-28-2017 Ambulatory Brandee Radford Facility:[facility] Start: 03-19-2017 End: 03-20-2017 Ambulatory Mehnaz Yevgeniy Facility:[facility] Start: 02-16-2017 End: 02-17-2017 Ambulatory Mehnaz Yevgeniy Facility:[facility] Start: 01-30-2017 End: 02-02-2017 Evaluation and management of inpatient Shemar Atul Facility:[facility] Start: 01-29-2017 End: 01-30-2017 [facility] Start: 01-22-2017 End: 01-23-2017 Ambulatory Mehnaz Yevgeniy Facility:[facility] Start: 01-15-2017 End: 01-16-2017 Ambulatory Mehnaz Yevgeniy Facility:[facility] Start: 01-05-2017 End: 01-06-2017 Ambulatory Mehnza Yevgeniy Facility:[facility] Start: 12-26-2016 End: 12-27-2016 [facility] Start: 12-26-2016 End: 12-27-2016 Ambulatory Mehnaz Yevgeniy Facility:[facility] Start: 12-05-2016 End: 12-06-2016 Ambulatory Mehnaz Yevgeniy Facility:[facility] Start: 11-07-2016 End: 11-08-2016 Ambulatory Lai Babcock Facility:[facility] Start: 11-07-2016 End: 11-08-2016 Ambulatory Mehnaz Yevgeniy Facility:[facility] Procedures Date Procedure Procedure Detail Performing Clinician section Tavo nagel Work Phone: Plan of Treatment Date Care Activity Detail Author Start: 06-06-2022 EPV, Provider: Tavo Zhou, Status: Pen, Time: 9:15 AM EPV, Provider: AbelardoTavo, Status: Pen, Time: 9:15 AM [facility] Work Phone: Payers Date Payer Category Payer Unknown 1995 Unknown [id number] Self-pay Social History Date Type Detail Facility No illicit drug use No illicit drug use [facility] Work Phone: History of Present [...] worse with lifting.taking daily fiber [facility]: 04/26/2021 [facility] Work Phone: Summary Purpose Family History No Family History Records FoundUnknown Family Member Name Dates Details No pertinent family history: Mother, Father(V49.89, Z78.9) Status:Active Advance Directives No Advanced Directives Records FoundNo Advanced Directives Records FoundNo Advanced Directives Records FoundNo Advanced Directives Records FoundNo Advanced Directives Records Found Chief Complaint [employer] - Hemorrhoids. Additional Source Comments INFORMATION SOURCE (unrecogn ized section and content) DATE CREATED AUTHOR AUTHOR'S ORGANIZ ATION 02/05/2019 [facility] ([place]) DATE CREATED AUTHOR AUTHOR'S ORGANIZ ATION 05/04/2022 [facility] DATE CREATED AUTHOR AUTHOR'S ORGANIZ ATION 05/04/2022 [employer] FOR RECORDS PERTAINING TO PATIENTS WHO ARE [...] BE BASED ON THE PRIMARY CLINICAL RECORDS. [facility]. provides no warranty or guarantee of the accuracy or completeness of information in this document.
== END | disposition home or self-care (01) ==
PROVIDERS: PCP Family Medicine; Referring Provider Nurse Practitioner Women's Health; Visit Provider Nurse Practitioner Women's Health
DX: D64.9 Anemia, unspecified (principal)
CPT/HCPCS: 36415; 85025